=== PATIENT | female | born 1975 | race Two or more races ===

== ENCOUNTER 2024-07-05 00:59 | Emergency (ER) | payer OTHER ==
[~2024-07-05] VITALS: Ht 167.6 cm; Wt 83.9 kg
[2024-07-05] MEDS ORDERED: AVAPRO150 MG PO (01:22)
[2024-07-05] MEDS ORDERED: KETOROLAC TROMETHAMINE 10 MG TABLET PO STA (06:58)
[2024-07-05] MEDS ORDERED: CIPROFLOXACIN IN 5 % DEXTROSE 400 MG/200 ML PIGGYBAG IV STA (06:59)
[2024-07-05] MEDS ORDERED: KETOROLAC TROMETHAMINE 10 MG TABLET PO ONE (07:32)
[2024-07-05] MEDS ORDERED: CIPROFLOXACIN IN 5 % DEXTROSE 400 MG/200 ML PIGGYBAG IV ONE (07:33)
[2024-07-05 08:50] LABS: PH,URINE 5.5 (5.0-8.0); URINE APPEARANCE Clear; URINE BILIRRUBIN Negative (NEGATIVE); URINE BLOOD Moderate; URINE COLOR Dark Yellow; URINE GLUCOSE Negative (NEGATIVE); URINE KETONE Negative (NEGATIVE); URINE LEUKOCYTE Trace; URINE NITRATE Positive; URINE PROTEIN Negative (NEGATIVE); URINE UROBILINOGEN 0.2 E.U./dl
[2024-07-05 08:51] LABS: URINE BACTERIA 28.1 uL (0.0-1933); URINE EPITHELIAL CELLS 1.5 uL (0.0-38.8); URINE RBC 13.1 uL (0.0-20.8); URINE WBC 12.3 uL (0.0-23.2)
== END 2024-07-05 10:08 | disposition home or self-care (01) ==
LOC: ER 01:01
PROVIDERS: General Practice
DX: N39.0 Urinary tract infection, site not specified (principal); I10 Essential (primary) hypertension; Z88.0 Allergy status to penicillin